=== PATIENT | female | born 1940 ===

== ENCOUNTER 2018-11-22 06:30 | Day surgery (SDC) | payer OTHER ==
[~2018-11-22 06:30] MED LIST: COZAAR100 MG PO; PROVASTATIN PO
[2018-11-22] MEDS ORDERED: CODE1TAB37 PO (10:27)
[2018-11-22] MEDS ORDERED: MACROBID 100 M100 MG PO (10:28)
== END 2018-11-22 16:20 | disposition home or self-care (01) ==
LOC: CIR.AMB 06:30
DX: N81.3 Complete uterovaginal prolapse (principal)
CPT/HCPCS: 57240; 57282; 57288; C1771